=== PATIENT | male | born 1975 | race Two or more races ===

== ENCOUNTER 2020-08-29 08:36 | Emergency (ER) | payer BC, OTHER ==
[~2020-08-29] VITALS: Ht 195.6 cm; Wt 99.8 kg
[2020-08-29 08:40] VITALS: BP 138/74
[2020-08-29] MEDS ORDERED: TETRACAINE HCL 0.5% OPTH(EYE) SOLN 4ML RIGHTEYE ONE (09:00)
[2020-08-29] MEDS ORDERED: FLUORESCEIN SOD OPTH TEST STRIP RIGHTEYE ONE (09:00)
[2020-08-29] MEDS ORDERED: ONDANSETRON ODT 4 MG TAB PO ONE (09:30)
== END 2020-08-29 09:39 | disposition home or self-care (01) ==
LOC: ER 08:36
DX: T15.01XA Foreign body in cornea, right eye, initial encounter (principal); Z88.8 Allergy status to other drugs, medicaments and biological substances; X58.XXXA Exposure to other specified factors, initial encounter; Y93.89 Activity, other specified; Y92.89 Other specified places as the place of occurrence of the external cause; Y99.8 Other external cause status
CPT/HCPCS: 65220; 99284; Q0162

== ENCOUNTER 2021-08-15 15:54 | Emergency (ER) | payer BC ==
[~2021-08-15] VITALS: Ht 195.6 cm; Wt 104.3 kg
[2021-08-15 15:56] VITALS: BP 126/86
== END 2021-08-15 21:38 | disposition home or self-care (01) ==
LOC: ER 15:54
DX: S51.812A Laceration without foreign body of left forearm, initial encounter (principal); F12.10 Cannabis abuse, uncomplicated; Z88.8 Allergy status to other drugs, medicaments and biological substances; W26.9XXA Contact with unspecified sharp object(s), initial encounter; Y93.89 Activity, other specified; Y92.89 Other specified places as the place of occurrence of the external cause; Y99.8 Other external cause status
CPT/HCPCS: 12002; 73090